=== PATIENT | female | born 1975 | race African-American/Black ===

== ENCOUNTER 2024-09-16 11:12 | Emergency (ER) | payer MEDICAID ==
[~2024-09-16] VITALS: Ht 165.1 cm; Wt 95.3 kg
[2024-09-16] MEDS ORDERED: FLUC200T8 PO (12:40)
[2024-09-16 12:53] VITALS: BP 148/95; TEMP 98.4; O2SAT 100
== END 2024-09-16 12:54 | disposition home or self-care (01) ==
LOC: ER 11:14
DX: B37.89 Other sites of candidiasis (principal); L29.9 Pruritus, unspecified; R21 Rash and other nonspecific skin eruption; I10 Essential (primary) hypertension